=== PATIENT | female | born 1955 | race Caucasian/White ===

== ENCOUNTER 2021-09-23 18:17 | Observation (INO) | payer MEDICARE, OTHER ==
[~2021-09-23] VITALS: Ht 162.6 cm; Wt 68.0 kg
[~2021-09-23 18:17] MED LIST: LISINOPRIL5 MG PO; LORTAB 5/3255 MG PO; METFORMIN1000 MG PO; METFORMIN500 MG PO; UNK CHOLESTEROL MED; WELLBUTRIN150 MG PO; WELLBUTRIN75 M1 PO; ZOCOR20 M1 PO; ZOFRAN ODT8 MG SL; [UNRECOGNIZED DRUG - REMARK]
--- NOTE | 2021-09-23 18:45 | NUR ---
PT ESCORTED VIA AMBULATORY TO ROOM FOR EVALUATION OF CHEST PAIN
[2021-09-23 19:04] LABS: HEMATOCRIT 40.6 % (37.0-47.0); HEMOGLOBIN 13.3 g/dl (12.0-16.0); IMMATURE GRANULOCYTES 0.3 % (0.0-5.0); MEAN CELL VOLUME 87.1 fL CALC (80.0-100.0); MEAN CORPUSCULAR HGB 28.5 pG CALC (26.0-32.0); MEAN CORPUSCULAR HGB CONC 32.8 g/dL CAL (32.0-36.0); NEUT# 4.72 thou/uL (2.00-7.15); RED BLOOD COUNT 4.66 mill/uL (4.20-5.60); RED CELL DISTRI WIDTH 14.1 % (11.5-15.5)
--- NOTE | 2021-09-23 19:05 | NUR ---
CARE ASSUMED, PT RESTING AWAITING RESULTS, CALL KAYE WITHIN REACH
[2021-09-23 19:20] LABS: ALBUMIN 4.2 g/dL (3.2-5.0); ALKALINE PHOSPHATASE 99 u/l (38-126); ANION GAP 11 (6-22 (CALC)); BUN 10 mg/dL (8-23); BUN/CREATININE RATIO 16 (12-20 (CALC)); CARBON DIOXIDE 30 mmol/l (22-30); CHLORIDE 103 mmol/l (95-108); CREATININE 0.6 mg/dL (0.5-1.0); GFR > 60 ML/MIN (>=60 (CALC)); GFR FOR AFR.AMER. > 60 ML/MIN (>=60 (CALC)); POTASSIUM 3.8 mmol/l (3.5-5.1); SGOT/AST 27 u/l (9-36); SODIUM 141 mmol/l (137-146)
[2021-09-23 19:21] LABS: BILIRUBIN, TOTAL 0.5 mg/dL (0.0-1.4); TOTAL PROTEIN 8.3 g/dL (6.3-8.2)
[2021-09-23 19:31] LABS: MYOGLOBIN 36 ng/mL (0 - 62)
[2021-09-23 19:55] LABS: AMYLASE 211 u/l (30-110); LIPASE 1118 u/l (23-300)
--- NOTE | 2021-09-23 20:45 | NUR ---
PT RESTING NO NEW COMPLAINTS AWARE OF AWIAITNG RADIOLOGY
--- NOTE | 2021-09-23 22:15 | NUR ---
PT MEDICATED ORDERED FOR PAIN AND IVF INFUSING, CALL MIKKI MISHRA, AND DAUGHTER AT SIDE
--- NOTE | 2021-09-23 23:00 | NUR ---
PT STATES MOERATE RELIEF OF PAIN STATES ITS MUCH IMPROVED BUT NOT RESOLVED, IVF CONTINUE
--- NOTE | 2021-09-24 00:15 | NUR ---
PT AWARE OF PLANNED ADMISSION AND COVITIVE POSITIVE (SHE WAS POSITIVE APPROX 3 WEEKS AGO) AWARE OF NEED TO BE IN [facility] HALLWAY AND OF NO VISITATION, DAUGHTER AWARE WELL.
--- NOTE | 2021-09-24 01:03 | NUR ---
TELEPHONE REPORT RECEIVED FROM Doris RAMSEY RN IN ED. ROOM 264 PREPARED TO RECEIVE PT.
--- NOTE | 2021-09-24 01:04 | NUR ---
REPORT CALLED TO [facility]
--- NOTE | 2021-09-24 01:11 | NUR ---
PT TRANSPORTED TO MED SURG VIA WHEELCHAIR, ALL BELONGINGS WITH PATIENT.
[2021-09-24 01:15] VITALS: BP 146/80
--- NOTE | 2021-09-24 01:15 | NUR ---
PT ARRIVES TO UNIT VIA WC, ACCOMPANIED BY Erendira PIZANO RN. ADMITTED TO ROOM 263. AMBULATORY TO BED.
[2021-09-24 05:12] VITALS: BP 136/59
[2021-09-24 05:44] LABS: HEMATOCRIT 36.6 % (37.0-47.0); HEMOGLOBIN 11.8 g/dl (12.0-16.0); MEAN CELL VOLUME 88.6 fL CALC (80.0-100.0); MEAN CORPUSCULAR HGB 28.6 pG CALC (26.0-32.0); MEAN CORPUSCULAR HGB CONC 32.2 g/dL CAL (32.0-36.0); RED BLOOD COUNT 4.13 mill/uL (4.20-5.60); RED CELL DISTRI WIDTH 14.2 % (11.5-15.5)
[2021-09-24 06:00] LABS: ANION GAP 7 (6-22 (CALC)); BUN 8 mg/dL (8-23); BUN/CREATININE RATIO 12 (12-20 (CALC)); CARBON DIOXIDE 29 mmol/l (22-30); CHLORIDE 107 mmol/l (95-108); CREATININE 0.7 mg/dL (0.5-1.0); GFR > 60 ML/MIN (>=60 (CALC)); GFR FOR AFR.AMER. > 60 ML/MIN (>=60 (CALC)); MAGNESIUM 1.8 mg/dL (1.6-2.3); POTASSIUM 3.6 mmol/l (3.5-5.1); SODIUM 140 mmol/l (137-146)
[2021-09-24 07:00] VITALS: BP 134/60
--- NOTE | 2021-09-24 07:00 | NUR ---
PATIENT RESTING IN BED AT THIS TIME. PATIENT TOLERATING ICE CHIPS BUT STATES SHE IS HAVING SOME PAIN IN ABDOMINAL AREA AND SLIGHT HEADACHE. AREA RATES IT A 2. FURNITURE ASSOCIATE DONE SEE INTERVENITONS. CALL LIGHT WITHIN REACH LUNG FIELD ARE CLEAR IN UPPERS DIMINISHED IN LOWERS . SIDERAILS ARE UP CALL LIGHT IS WITHIN REACH.
[2021-09-24 08:38] LABS: CHOLESTEROL HDL RATIO 5.2 (<4.4 (CALC))
--- NOTE | 2021-09-24 10:32 | NUR ---
SIX MINUTE WALK TEST DONE AT THIS TIME PATIENT AT REST IS 95% ON ROOM AIR AND 76 PULSE. PATIENT THEN WALKED IN ROOM AND HALLWAY WITH MASK ON AND SPO2 WENT TO 94% AND PULSE WENT TO 77 BPM. SIX MINUTE WALK TEST COMPLETED AT THIS TIME. GUERITA SPARKS APRN AND DR. MENDEZ GIVEN RESULTS.
--- NOTE | 2021-09-24 11:04 | NUR ---
PATIENT RESTING IN BED AT THIS TIME. PATIENT STATES SHE ISN'T HAVING ANY PAIN AT THIS TIME. PATIENT REMAINS NPO FOR ULTRASOUND TO BE DONE. SIDERAILS ARE UP X 2 CALL LIGHT IS ROGER MISHRA.
--- NOTE | 2021-09-24 16:00 | NUR ---
PATIENT RESTING IN BED AT THIS TIME. PATIENT STATES HER HEADACE IS A 2 ON THE PAIN SCALE AND THE TYLENOL HAS HELPED. SIDERAILS ARE UP CALL LIGHT WITHIN REACH WILL CONTINUE TO MONITOR.
[2021-09-24 16:25] VITALS: BP 119/55
[2021-09-24] MEDS ORDERED: LORTAB5 PO (18:18)
[2021-09-24] MEDS ORDERED: ZOFRAN4 MG/TAB PO (18:18)
[2021-09-24 19:00] VITALS: BP 120/58
--- NOTE | 2021-09-24 19:15 | NUR ---
Discharge instructions given. Patient verbalizes understanding of same. Discharged in stable condition via Wheelchair to Home with spouse. All belongings sent with pt.
== END 2021-09-24 19:15 | disposition home or self-care (01) ==
LOC: ED 18:17 → ED-I 22:15 → ED 22:24 → MS2 22:25
PROVIDERS: Emergency Medicine; Nurse Practitioner; ADMIT Hospitalist; ATTEND Hospitalist
DX: K85.90 Acute pancreatitis without necrosis or infection, unspecified (principal); I10 Essential (primary) hypertension; E11.9 Type 2 diabetes mellitus without complications; U07.1 COVID-19; H40.9 Unspecified glaucoma; E78.5 Hyperlipidemia, unspecified; F32.A Depression, unspecified; L40.50 Arthropathic psoriasis, unspecified; Z79.899 Other long term (current) drug therapy
CPT/HCPCS: Q9967; S0164